=== PATIENT | female | born 1970 | race Caucasian/White ===

== ENCOUNTER 2019-10-15 05:57 | Day surgery (SDC) | payer MEDICARE ==
[2019-10-15] MEDS ORDERED: Lactated Ringers 1,000 ML IV SCH (06:30)
[2019-10-15] MEDS ORDERED: KEFZOL 1 GM/50 ML PREMIX** 1 GM/50 ML IVPB IV ONE (06:59)
[2019-10-15] MEDS ORDERED: KEFZOL 1 GM/50 ML PREMIX** 1 GM/50 ML IVPB IV SCH (07:00)
[2019-10-15] MEDS ORDERED: Decadron 4 MG INJ ONE (07:30)
[2019-10-15] MEDS ORDERED: DIPRIVAN 200 MG/20 ML IV ONE (07:30)
[2019-10-15] MEDS ORDERED: Zofran 4 MG/2 ML VIAL ONE (07:30)
[2019-10-15] MEDS ORDERED: Versed 2 MG/2 ML Injection ONE (07:30)
[2019-10-15] MEDS ORDERED: SUBLIMAZE 250 MCG/5 ML ONE (07:34)
[2019-10-15] MEDS ORDERED: SUBLIMAZE 100 MCG/2 ML ONE (07:35)
[2019-10-15 09:00] VITALS: BP 121/90; PULSE 87; O2SAT 95
--- NOTE | 2019-10-16 09:17 | OP ---
SURGERY DATE/TIME: 10/15/2019 0736 PREOPERATIVE DIAGNOSES: 1) Postmenopausal bleeding. 2) Cervical polyp. POSTOPERATIVE DIAGNOSES: 1) Postmenopausal bleeding. 2) Cervical polyp. PROCEDURE: Hysteroscopy, D&C with cervical polypectomy. SURGEON: Thomas Montiel D.O. POST OFFICE MANAGER: Matias Calderon respiratory support technician. ANESTHESIA: General. ESTIMATED BLOOD LOSS: Minimal. COMPLICATIONS: None. INDICATIONS: The risks, benefits, indications and alternatives of the procedure were reviewed with the patient prior to procedure. The patient understood the risk of infection, bleeding, bowel injury, bladder injury, ureteral injury, uterine perforation, pelvic infection, thromboembolic disorder associated with the surgery and desires to have this surgery as a possible need to alleviate her current medical condition. DESCRIPTION OF PROCEDURE AND FINDINGS: At this point the patient is taken to the operating room, given general sedation, placed in dorsal lithotomy position. Prepped and draped in usual sterile fashion. A weighted speculum is then placed in the patient's vagina and the anterior lip of the cervix is grasped with a single tooth tenaculum. There appeared to be an approximately 3 x 2 cm polypoid lesion extruding from the cervical canal. From this a polyp forceps was used to grasp the polypoid lesion and was twisted in a circular motion until it was removed and there was minimal bleeding that was noted after its removal. From this point dilators were used and advanced to the endocervical canal as a means to dilate the cervix and a 5 mm hysteroscope was then placed into the endocervical canal where visualization of the uterine cavity appeared to be within normal limits and there was no gross abnormality noted within the canal. From this point the hysteroscope was then removed. A curette was then placed in all quadrants of the uterus where curettage was performed again in all quadrants of the uterus retrieving a mild to moderate amount of tissue. From this point after curettage all instruments were then removed from the patient's vaginal region. The patient was then taken out of the dorsal lithotomy position and was then taken to the recovery room in stable condition. All instruments and laps were accounted for x2.
== END 2019-10-15 09:20 | disposition home or self-care (01) ==
LOC: SDC 05:57
PROVIDERS: ATTEND Obstetrics & Gynecology
DX: N95.0 Postmenopausal bleeding (principal); N84.1 Polyp of cervix uteri
CPT/HCPCS: 58558; 84703; 88305; J0690; J1100; J2250; J2405; J2704; J3010